=== PATIENT | female | born 1945 ===

== ENCOUNTER 2020-10-20 12:25 | Outpatient (CLI) | payer MEDICARE | END 2020-10-20 23:59 | disposition home or self-care (01) | LOC: LAB 12:25 | PROVIDERS: ATTEND Psychiatry & Neurology Neurology | DX: G40.209 Localization-related (focal) (partial) symptomatic epilepsy and epileptic syndromes with complex partial seizures, not intractable, without status epilepticus (principal) | CPT/HCPCS: 36415; 82565 ==

== ENCOUNTER 2020-10-22 14:41 | Outpatient (CLI) | payer MEDICARE ==
[2020-10-22] MEDS ORDERED: GADOBUTROL 10 MMOL/10 ML VIAL ONE (15:48)
[2020-10-22] MEDS ORDERED: GADOBUTROL 10 MMOL/10 ML VIAL IVP ONE (17:58)
--- NOTE | 2020-10-24 08:16 | MRI Report ---
PROCEDURE: Brain W/WO INDICATIONS: MOLYL VU SEIZURE DISORDER CONTRAST: IV CONTRAST: Gadavist ml: 8 TECHNIQUE: Noncontrast axial T1 spin echo, axial T2 fast spin echo, sagittal and axial FLAIR, coronal T2 fast sp in echo, axial gradient echo, axial diffusion and ADC through the brain. After the administration of contrast, axial and coronal T1 spin echo with fat saturation through the brain. COMPARISON: None. FINDINGS: Image quality: Excellent. CSF spaces: Basal cisterns are patent. No extra-axial fluid collections. Ventricles are normal in size and shape. Brain: No midline shift. No intracranial bleeds or masses. No abnormal intracranial enhancement. There is cerebral volume loss for age. There is periventricular white matter chronic small vessel is chemic change. The brainstem appears normal. Diffusion-weighted images demonstrate no acute ischemi c insults. No chronic ischemic insults. Normal intravascular flow voids are present. Skull and face: Calvarial marrow is normal in signal. Orbits appear normal. Sinuses: Sinuses and mastoids appear clear. IMPRESSION: Mild microvascular atherosclerotic change in the deep white matter of each hemisphere, a nd no evidence of focal ischemic injury from prior stroke is found. No mass or area of abnormal vascu lar enhancement is seen. Source of current seizure symptoms is not identified. Reviewed by: Lalo Loomis MD on 10/24/2020 8:14 AM PST Approved by: Lalo Loomis MD on 10/24/2020 8:14 AM PST Station ID: [id number]
== END 2020-10-22 14:42 | disposition home or self-care (01) ==
LOC: DI 14:41
PROVIDERS: ATTEND Psychiatry & Neurology Neurology
DX: G40.209 Localization-related (focal) (partial) symptomatic epilepsy and epileptic syndromes with complex partial seizures, not intractable, without status epilepticus (principal)
CPT/HCPCS: 36415; 70553; 82565; A9585